=== PATIENT | male | born 1955 | race Caucasian/White ===

== ENCOUNTER 2017-09-17 17:22 | Emergency (ER) | payer MEDICAID ==
--- NOTE | 2017-09-17 18:21 | ED ---
General Adult HPI - General Chief complaint: Extremity Problem,Nontraumatic Stated complaint: Leg pain Time Seen by Provider: 09/17/17 17:58 Source: patient Mode of arrival: ambulatory Limitations: no limitations - History of Present Illness Initial comments: 62-year-old male presents to the emergency department for bilateral knee pain for years. Patient states the pain has been increasing over the past few years. Patient has taken ibuprofen 1 time in the past few years and it didn't help so he did not try again. Patient states taking warm baths help. Patient states when he stands up he feels a little stiff in the knees and once he gets walking he'll feel a little better. Patient states that about 6 weeks ago he saw his primary care provider for this who gave him a steroid shot and a steroid Dosepak which helped with his pain for a while. Patient states he had stronger pain medications at one point but questioned whether they caused him a bout of A. fib so he does not want narcotics. Patient is going on spring break on Tuesday so was wondering if there is anything we could do to help him. - Related Data Previous Rx's Medication Instructions Recorded methylPREDNISolone Dose Pack 4 mg PO DIRECTED #21 package 09/17/17 [Medrol Dose Pack] Allergies Allergy/AdvReac Type Severity Reaction Status Date / Time No Known Allergies Allergy Verified 09/17/17 17:42 Review of Systems ROS Statement: Those systems with pertinent positive or pertinent negative responses have been documented in the HPI. ROS Other: All systems not noted in ROS Statement are negative. Past Medical History Past Medical History: Diabetes Mellitus, Hyperlipidemia, Hypertension History of Any Multi-Drug Resistant Organisms: None Reported Additional Past Surgical History / Comment(s): vasectomy Past Psychological History: No Psychological Hx Reported Smoking Status: Never smoker Past Alcohol Use History: Occasional Past Drug Use History: None Reported General Exam Limitations: no limitations Respiratory exam: Present: normal lung sounds bilaterally Cardiovascular Exam: Present: regular rate, normal rhythm, normal heart sounds. Absent: systolic murmur, diastolic murmur, rubs, gallop, clicks Extremities exam: Present: full ROM, normal capillary refill (Patient's capillary refill less than 2 seconds in bilateral lower extremities), pedal edema (Patient has 2+ pitting edema), other (2+ pedal and posterior tibial pulses. ). Absent: tenderness (No tenderness in the knees or legs bilaterally) , joint swelling (Patient has no swelling or bruising in the knee joints bilaterally.), calf tenderness (Patient denies calf tenderness. There is no swelling or redness in the calves. Negative Homans sign.) Course Vital Signs 09/17/17 17:39 Temperature 98.4 F Pulse Rate 87 Respiratory 20 Rate Blood Pressure 182/88 O2 Sat by Pulse 96 Oximetry Medical Decision Making - Medical Decision Making 62-year-old male presents to the emergency department for a chief complaint of chronic knee pain. Patient says this has been ongoing for years. Patient denies any trauma to the knees. Patient is very overweight at 165 kg. Patient denies any tenderness in the calves. Homans sign is negative. No redness or swelling in the calves bilaterally. Patient states most of the pain is in his knees. Patient likely has arthritis given that this has been ongoing for years and he is very overweight. Patient has tried ibuprofen once but it didn't help so he didn't continue it. X-rays were not indicated in this case as there was no injury or trauma and this has been an ongoing pain. Patient was told in the past he likely has arthritis. Patient will be given a Medrol Dosepak because he had steroids about 6 weeks ago which helped him. He is going on vacation in a week so will take the steroid pack then. Patient will also begin taking ibuprofen and Tylenol. He can also continue taking warm baths to help soothe the pain. Patient was not given stronger pain medications because he had a negative experience with narcotics in the past. He will contact his doctor to discuss the use of ibuprofen. He will make an appointment with his doctor within the next 1-2 days to follow-up. He will return to the emergency department if symptoms worsen. Disposition Clinical Impression: Arthritis Disposition: HOME SELF-CARE Condition: Good Instructions: Arthritis (ED) Additional Instructions: Please take ibuprofen and Tylenol for pain relief. Take steroids as directed. Continue hot baths for pain relief. Please follow-up with primary care physician in one to 2 days. Please return to the emergency department if symptoms worsen. Prescriptions: methylPREDNISolone Dose Pack [Medrol Dose Pack] 4 mg PO DIRECTED #21 package Referrals: Marco Antonio Bowman MD [Primary Care Provider] - 1-2 days
[2017-09-17 18:31] VITALS: BP 161/90; PULSE 75; RESP 18; TEMP 97.6
== END 2017-09-17 18:27 | disposition home or self-care (01) ==
LOC: EC 17:22
DX: M17.0 Bilateral primary osteoarthritis of knee (principal)
CPT/HCPCS: 99283